=== PATIENT | male | born 1955 | race American Indian/Alaskan Native ===

== ENCOUNTER 2019-03-09 07:50 | Emergency (ER) | payer OTHER ==
--- NOTE | 2019-03-09 08:35 | XRay Report ---
RIGHT ANKLE 2 VIEWS INDICATION: pain and swelling after injury. COMPARISON: None. IMPRESSION: There is moderate diffuse soft tissue swelling. Bone mineralization is borderline. No a cute osseous injury, significant joint pathology or bone lesion. Moderate plantar spur Signer Name: Bjorn Zuñiga Jr, MD Signed: 03/09/2019 8:30 AM Workstation Name: [id number]
--- NOTE | 2019-03-09 10:07 | Emergency Department Report ---
ED General Adult HPI - General Chief complaint: Extremity Injury, Lower Stated complaint: INJURED (R) FOOT AT WORK Time Seen by Provider: 03/09/19 09:44 Source: patient Mode of arrival: Ambulatory Limitations: No Limitations - History of Present Illness Initial comments: 63-year-old -[place] female presents with complaints of right ankle pain after tripping over a box yesterday. She rates her pain as a 8.5/10 in severity. She states she is able to ambulate. She denies any dizziness or head trauma. She states the ankle is swollen and she has not tried any yoay-qan-gzrwvzs medicines for the pain. -: Sudden Consistency: constant - Related Data Previous Rx's Medication Instructions Recorded Last Taken Type Naproxen 500 mg PO BID PRN #12 tablet 03/09/19 Unknown Rx Allergies Allergy/AdvReac Type Severity Reaction Status Date / Time No Known Allergies Allergy Unverified 03/09/19 07:56 ED Review of Systems ROS: Stated complaint: INJURED (R) FOOT AT WORK Other details as noted in HPI Comment: All other systems reviewed and negative Musculoskeletal: as per HPI ED Past Medical Hx - Past Medical History Previous Medical History?: No - Surgical History Past Surgical History?: No - Social History Smoking Status: Current Every Day Smoker - Medications Home Medications: Home Medications Medication Instructions Recorded Confirmed Last Taken Type Naproxen 500 mg PO BID PRN #12 tablet 03/09/19 Unknown Rx ED Physical Exam - General Limitations: No Limitations General appearance: alert, in no apparent distress - Head Head exam: Present: atraumatic, normocephalic - Eye Eye exam: Present: normal appearance - Respiratory Respiratory exam: Absent: respiratory distress - Cardiovascular Cardiovascular Exam: Present: regular rate, normal rhythm - Extremities Exam Extremities exam: Present: full ROM, tenderness (right lateral malleolus tenderness to palpation with mild to moderate swelling. No ecchymosis noted), joint swelling, other - Back Exam Back exam: Present: normal inspection - Neurological Exam Neurological exam: Present: alert, oriented X3 - Psychiatric Psychiatric exam: Present: normal affect, normal mood - Skin Skin exam: Present: warm, dry, intact, normal color. Absent: rash ED Course Vital Signs 03/09/19 07:54 Temperature 98.5 F Pulse Rate 105 H Respiratory 18 Rate Blood Pressure 130/101 O2 Sat by Pulse 99 Oximetry ED Medical Decision Making - Radiology Data Radiology results: report reviewed RIGHT ANKLE 2 VIEWS INDICATION: pain and swelling after injury. COMPARISON: None. IMPRESSION: There is moderate diffuse soft tissue swelling. Bone mineralization is borderline. No acute osseous injury, significant joint pathology or bone lesion. Moderate plantar spur - Medical Decision Making 63-year-old -[place] female presents with complaints of right ankle pain after tripping over a box yesterday. X-ray is negative for any acute osseous abnormalities. Fall was mechanical in nature. Vitals are normal. Recommend rice treatment for ankle sprain and follow-up with orthopedics. Strict return precautions were discussed in detail with patient verbalizes understanding. Critical care attestation.: If time is entered above; I have spent that time in minutes in the direct care of this critically ill patient, excluding procedure time. ED Disposition Clinical Impression: Right ankle sprain Qualifiers: Encounter type: initial encounter Involved ligament of ankle: other ligament Qualified Code(s): S93.491A - Sprain of other ligament of right ankle, initial encounter Disposition: DC- TO HOME OR SELFCARE Is pt being admited?: No Condition: Stable Instructions: Ankle Sprain (ED) Prescriptions: Naproxen 500 mg PO BID PRN #12 tablet PRN Reason: pain Referrals: ROSS OCHOA MD [Staff Physician] - as needed
[2019-03-09] MEDS ORDERED: NAPROXEN 500 MG TAB PO ONE (11:11)
--- NOTE | 2019-03-09 11:14 | Emergency Department Report ---
Chief Complaint: Extremity Injury, Lower Stated Complaint: INJURED (R) FOOT AT WORK Time Seen by Provider: 03/09/19 09:44 - HPI History of Present Illness: 63-year-old -Citizen Of [place] female presents with complaints of right ankle pain after tripping over a box yesterday. She rates her pain as a 8.5/10 in severity. She states she is able to ambulate. She denies any dizziness or head trauma. She states the ankle is swollen and she has not tried any fhnd-xoh-ahjfyft medicines for the pain. - Exam Vital Signs: Vital Signs 03/09/19 07:54 Temperature 98.5 F Pulse Rate 105 H Respiratory 18 Rate Blood Pressure 130/101 O2 Sat by Pulse 99 Oximetry Physical Exam: Patient is nontoxic appearing and in no acute distress Normal heart rate and rhythm noted Normal breath sounds noted. No respiratory distress noted Patient is alert and oriented 3 Patient has normal mood and affect MSE screening note: Focused history and physical exam performed. Due to findings the following was ordered: Patient presents for medication refills. Patient is currently uninsured and states he does not have a primary care physician due to this. His vitals are within normal limits. Patient is nontoxic appearing. Patient does not meet criteria for emergent care; there is no threat of loss of life or limb. Patient referred to Dr. Pina, primary care for indication refills and further evaluation. ED Medical Decision Making - EKG Data -: EKG Interpreted by Me ED Disposition for MSE Clinical Impression: Right ankle sprain Qualifiers: Encounter type: initial encounter Involved ligament of ankle: other ligament Qualified Code(s): S93.491A - Sprain of other ligament of right ankle, initial encounter Disposition: TO HOME OR SELFCARE Condition: Stable Instructions: Ankle Sprain (ED) Prescriptions: Naproxen 500 mg PO BID PRN #12 tablet PRN Reason: pain Referrals: ROSS OCHOA MD [Staff Physician] - as needed
--- NOTE | 2019-03-09 11:17 | Emergency Department Report ---
ED General Adult HPI - General Chief complaint: Extremity Injury, Lower Stated complaint: INJURED (R) FOOT AT WORK Time Seen by Provider: 03/09/19 09:44 Source: patient Mode of arrival: Ambulatory Limitations: No Limitations - History of Present Illness Initial comments: 63-year-old -[place] female patient complains of right ankle pain and swelling after tripping over a box yesterday. She denies any head trauma or preceding dizziness or other symptoms. She rates her pain as a 8.5/10 in severity and describes it as a aching stabbing type pain. Pain worsens with ambulation and movement of the ankle. She denies trying any OTC medications for the pain. - Related Data Previous Rx's Medication Instructions Recorded Last Taken Type Naproxen 500 mg PO BID PRN #12 tablet 03/09/19 Unknown Rx Allergies Allergy/AdvReac Type Severity Reaction Status Date / Time No Known Allergies Allergy Unverified 03/09/19 07:56 ED Review of Systems ROS: Stated complaint: INJURED (R) FOOT AT WORK Other details as noted in HPI Comment: All other systems reviewed and negative Musculoskeletal: as per HPI ED Past Medical Hx - Past Medical History Previous Medical History?: No - Surgical History Past Surgical History?: No - Social History Smoking Status: Current Every Day Smoker - Medications Home Medications: Home Medications Medication Instructions Recorded Confirmed Last Taken Type Naproxen 500 mg PO BID PRN #12 tablet 03/09/19 Unknown Rx ED Physical Exam - General Limitations: No Limitations General appearance: alert, in no apparent distress - Head Head exam: Present: atraumatic, normocephalic - Eye Eye exam: Present: normal appearance. Absent: scleral icterus - Respiratory Respiratory exam: Absent: respiratory distress - Cardiovascular Cardiovascular Exam: Present: regular rate, normal rhythm. Absent: systolic murmur, diastolic murmur, rubs, gallop - Extremities Exam Extremities exam: Present: full ROM, tenderness, joint swelling (mild to moderate right ankle swelling noted without ecchymosis and moderate tenderness to palpation over lateral malleolus), other - Neurological Exam Neurological exam: Present: alert, oriented X3 - Psychiatric Psychiatric exam: Present: normal affect, normal mood - Skin Skin exam: Present: warm, dry, intact, normal color. Absent: rash ED Course Vital Signs 03/09/19 03/09/19 07:54 11:25 Temperature 98.5 F Pulse Rate 105 H 84 Respiratory 18 18 Rate Blood Pressure 130/101 Blood Pressure 131/75 [Left] O2 Sat by Pulse 99 99 Oximetry ED Medical Decision Making - Radiology Data Radiology results: report reviewed RIGHT ANKLE 2 VIEWS INDICATION: pain and swelling after injury. COMPARISON: None. IMPRESSION: There is moderate diffuse soft tissue swelling. Bone mineralization is borderline. No acute osseous injury, significant joint pathology or bone lesion. Moderate plant ar spur - Medical Decision Making 63-year-old -[place] female complains of right ankle pain and swelling after tripping over a box yesterday. X-ray of the ankle is negative for acute osseous abnormalities. Vitals are normal. Patient is able to ambulate. Patient is stable for discharge home and follow-up with the Sandeep Castañeda. Chalo villeda method of treatment. Strict return precautions were discussed in detail with patient who verbalizes understanding Critical care attestation.: If time is entered above; I have spent that time in minutes in the direct care of this critically ill patient, excluding procedure time. ED Disposition Clinical Impression: Right ankle sprain Qualifiers: Encounter type: initial encounter Involved ligament of ankle: other ligament Qualified Code(s): S93.491A - Sprain of other ligament of right ankle, initial encounter Disposition: - TO HOME OR SELFCARE Is pt being admited?: No Condition: Stable Instructions: Ankle Sprain (ED) Prescriptions: Naproxen 500 mg PO BID PRN #12 tablet PRN Reason: pain Referrals: ROSS OCHOA MD [Staff Physician] - as needed
[2019-03-09 11:26] VITALS: BP 131/75
== END 2019-03-09 11:25 | disposition home or self-care (01) ==
LOC: ED 07:50
DX: S93.401A Sprain of unspecified ligament of right ankle, initial encounter (principal); F17.200 Nicotine dependence, unspecified, uncomplicated; W01.0XXA Fall on same level from slipping, tripping and stumbling without subsequent striking against object, initial encounter; Y93.89 Activity, other specified; Y92.89 Other specified places as the place of occurrence of the external cause; Y99.8 Other external cause status
CPT/HCPCS: 99283

== ENCOUNTER 2021-09-28 00:50 | Emergency (ER) | payer MEDICARE ==
[2021-09-28 01:33] LABS: Basophils % (Auto) 0.6 % (0.0-1.8); Eosinophils # (Auto) 0.2 K/mm3 (0.0-0.4); Eosinophils % (Auto) 2.9 % (0.0-4.3); Hematocrit 37.9 % (35.5-45.6); Hemoglobin 12.6 gm/dl (11.8-15.2); Lymphocytes # (Auto) 1.7 K/mm3 (1.2-5.4); Lymphocytes % (Auto) 32.1 % (13.4-35.0); Mean Corpuscular HGB Conc 33 % (32-34); Mean Corpuscular Volume 85 fl (84-94); Monocytes # (Auto) 0.3 K/mm3 (0.0-0.8); Monocytes % (Auto) 5.1 % (0.0-7.3); Platelet Count 260 K/mm3 (140-440); Red Blood Count 4.47 M/mm3 (3.65-5.03); Red Cell Distribution Width 15.1 % (13.2-15.2)
[2021-09-28 01:51] LABS: Alanine Aminotransferase 10 units/L (7-56); Albumin 4.3 g/dL (3.9-5); Blood Urea Nitrogen 15 mg/dL (9-20); Calcium 9.6 mg/dL (8.4-10.2); Hemolysis Index 19
[2021-09-28 01:57] LABS: BUN/Creatinine Ratio 21
[2021-09-28 02:03] LABS: Bacteria,Urine 1+ /HPF (Negative); Mucus,Urine FEW /HPF
[2021-09-28 02:15] LABS: Color,Urine Yellow (Yellow)
[2021-09-28 02:16] LABS: Bilirubin,Urine Negative (Negative); Blood,Urine Trace (Negative)
[2021-09-28] MEDS ORDERED: MORPHINE 4 MG/1 ML INJ IV ONE (08:45)
[2021-09-28] MEDS ORDERED: ONDANSETRON 4 MG/2 ML INJ IV ONE (08:45)
[2021-09-28] MEDS ORDERED: KETOROLAC 30 MG/1 ML INJ IV ONE (08:50)
--- NOTE | 2021-09-28 08:52 | Emergency Department Report ---
ED Abdominal Pain HPI - General Chief Complaint: Abdominal Pain Stated Complaint: LEFT SIDE PAIN Source: patient Mode of arrival: Ambulatory Limitations: No Limitations - History of Present Illness Initial Comments: 65-year-old female with no significant medical history presents to the emergency department with left-sided abdominal pain radiating to her left lower abdomen left leg. Patient reports symptoms began suddenly while at work last night, sharp without associated nausea or vomiting. 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 No dysuria, no nausea or vomiting, no chest pain, no headache dizziness shortness of breath. l -: Sudden Location: LUQ, LLQ Radiation: LLQ, other (Left leg) Severity: severe Severity scale (0 -10): 10 Quality: sharp Consistency: constant Improves With: nothing Worsens With: nothing Context: other (Well at 4) Associated Symptoms: denies other symptoms. denies: nausea, vomiting, diarrhea, chills, constipation Treatments Prior to Arrival: other (None) - Related Data Previous Rx's Medication Instructions Recorded Last Taken Type Cyclobenzaprine [Flexeril] 10 mg PO TID PRN #20 09/28/21 Unknown Rx Naproxen 500 mg PO BID PRN #12 tablet 09/28/21 Unknown Rx Allergies Allergy/AdvReac Type Severity Reaction Status Date / Time No Known Allergies Allergy Unverified 03/09/19 07:56 ED Review of Systems ROS: Stated complaint: LEFT SIDE PAIN Other details as noted in HPI Comment: All other systems reviewed and negative Constitutional: no symptoms reported Eyes: as per HPI Respiratory: denies: shortness of breath Cardiovascular: denies: chest pain Endocrine: denies: excessive sweating, flushing Gastrointestinal: abdominal pain. denies: nausea, vomiting, diarrhea, constipation, hematemesis Genitourinary: denies: urgency, dysuria, frequency Musculoskeletal: myalgia. denies: joint swelling, arthralgia Skin: as per HPI Neurological: denies: headache, weakness ED Past Medical Hx - Past Medical History Previous Medical History?: No - Surgical History Past Surgical History?: Yes Hx Cholecystectomy: Yes - Social History Smoking Status: Current Every Day Smoker - Medications Home Medications: Home Medications Medication Instructions Recorded Confirmed Last Taken Type Cyclobenzaprine [Flexeril] 10 mg PO TID PRN #20 09/28/21 Unknown Rx Naproxen 500 mg PO BID PRN #12 tablet 09/28/21 Unknown Rx ED Physical Exam - General Limitations: No Limitations General appearance: alert, in no apparent distress - Head Head exam: Present: atraumatic - Eye Eye exam: Present: normal appearance - ENT ENT exam: Present: normal exam, normal orophraynx - Neck Neck exam: Present: normal inspection. Absent: tenderness - Respiratory Respiratory exam: Present: normal lung sounds bilaterally - Cardiovascular Cardiovascular Exam: Present: regular rate, normal rhythm, normal heart sounds - GI/Abdominal GI/Abdominal exam: Present: soft, tenderness (Tenderness in the left upper quadrant left periumbilical area, no CVA no flank pain). Absent: guarding, rebound - Extremities Exam Extremities exam: Present: normal inspection, normal capillary refill - Back Exam Back exam: Present: normal inspection, full ROM, muscle spasm. Absent: tenderness, CVA tenderness (R), CVA tenderness (L), paraspinal tenderness - Neurological Exam Neurological exam: Present: alert, oriented X3 - Psychiatric Psychiatric exam: Present: normal affect - Skin Skin exam: Present: warm, dry, intact ED Course Vital Signs 09/28/21 09/28/21 09/28/21 01:05 07:37 10:00 Temperature 98.7 F 98.6 F Pulse Rate 86 65 Respiratory 15 Rate Blood Pressure 139/81 118/73 [Right] O2 Sat by Pulse 98 98 100 Oximetry ED Medical Decision Making - Lab Data Result diagrams: 09/28/21 01:15 09/28/21 01:15 - Medical Decision Making Differential diagnosis for 65-year-old female presenting with left-sided abdominal pain sudden onset includes colitis, diverticulitis, renal colic, nephrolithiasis, gastroenteritis, gastritis, pancreatitis, cholecystitis, UTI, pyelonephritis, aneurysm, hernia Patient is remained stable throughout ED course, vital signs are reassuring, labs are also reassuring without any signs of any acute infectious or inflammatory processes, CT is also negative. 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 Most likely musculoskeletal strain. Comfort for the pain radiates down to her lower extremities. Otherwise we will treat for symptom management, activity modification. I discussed all of this with patient including monitoring and return precautions. Including fevers vomiting or any other concerning symptoms. At the time of discharge stable ambulates steadily and verbalized understanding of everything discussed Critical care attestation.: If time is entered above; I have spent that time in minutes in the direct care of this critically ill patient, excluding procedure time. ED Disposition Clinical Impression: Left sided abdominal pain, Abdominal muscle strain Disposition: HOME / SELF CARE / HOMELESS Is pt being admited?: No Does the pt Need Aspirin: No Condition: Stable Instructions: Muscle Strain, [id number], Abdominal Pain, Adult, [id number] Additional Instructions: Your CAT scan did not show any acute problems right now it is important to follow-up with your doctor for further evaluation. In the meantime take pain medications as needed, pay attention to your symptoms your trigger and return for any concerning symptom including worsening pain, fever, vomiting Prescriptions: Cyclobenzaprine [Flexeril] 10 mg PO TID PRN #20 PRN Reason: Muscle Spasm Naproxen 500 mg PO BID PRN #12 tablet PRN Reason: pain Referrals: ZAKIYA FERNANDEZ MD [Primary Care Provider] - 3-5 Days
--- NOTE | 2021-09-28 09:46 | Cat Scan Report ---
CT ABDOMEN AND PELVIS WITHOUT CONTRAST HISTORY: left side worsening abd pain COMPARISON: None TECHNIQUE: Routine abdominal and pelvic CT exam performed without contrast. Lack of intravenous cont rast limits evaluation of the vascular and solid organs.. All CT scans at this location are performed using CT dose reduction for ALARA by means of automated exposure control. FINDINGS: CT ABDOMEN: Lung Bases: No significant abnormality. Liver: No significant abnormality. Biliary: Gallbladder is surgically absent. Spleen: No significant abnormality. Unenlarged. Pancreas: No significant abnormality. Adrenals: No significant abnormality. Kidneys: No significant abnormality. Lymphatics: No lymphadenopathy. Vasculature: Atherosclerotic but nonaneurysmal abdominal aorta. Bowel/Peritoneum: No significant abnormality. No free air. No free fluid. CT PELVIC: : No significant abnormality. Lymphatics: No lymphadenopathy. Osseous Structures: No aggressive appearing osseous lesions. Additional Findings: None IMPRESSION: 1. No acute findings. Signer Name: Jamie Gavin MD Signed: 09/28/2021 9:41 AM Workstation Name: [id number]
[2021-09-28 10:07] VITALS: BP 118/73
== END 2021-09-28 11:06 | disposition home or self-care (01) ==
LOC: ED 00:50
DX: S39.011A Strain of muscle, fascia and tendon of abdomen, initial encounter (principal); R10.9 Unspecified abdominal pain; F17.200 Nicotine dependence, unspecified, uncomplicated; X58.XXXA Exposure to other specified factors, initial encounter; Y93.89 Activity, other specified; Y92.89 Other specified places as the place of occurrence of the external cause; Y99.8 Other external cause status
CPT/HCPCS: 36415; 74176; 80053; 81001; 85025; 96374; 96375; 99284; J1885; J2405